=== PATIENT | female | born 1980 | race African-American/Black ===

== ENCOUNTER 2020-11-23 03:16 | Emergency (ER) | payer OTHER ==
[~2020-11-23] VITALS: Ht 170.2 cm; Wt 74.8 kg
[2020-11-23] MEDS ORDERED: PERIDEX473 M1 PO (03:38)
[2020-11-23] MEDS ORDERED: CLINDAMYCIN HC150 MG PO (03:38)
[2020-11-23] MEDS ORDERED: HYDROCODON-ACE1 EA11 PO (03:38)
[2020-11-23] MEDS ORDERED: LIDOCAINE VISC 2% SOLN 15 ML UDC ONE (03:44)
[2020-11-23] MEDS ORDERED: HYDROCODONE/APAP 10MG-325MG TAB ONE (03:45)
[2020-11-23] MEDS ORDERED: LIDOCAINE VISC 2% SOLN 15 ML UDC PO ONE (03:45)
[2020-11-23] MEDS ORDERED: HYDROCODONE/APAP 10MG-325MG TAB PO ONE (03:45)
== END 2020-11-23 04:02 | disposition home or self-care (01) ==
LOC: ER 03:35
DX: K08.89 Other specified disorders of teeth and supporting structures (principal)
CPT/HCPCS: 99283